=== PATIENT | male | born 1980 | race African-American/Black ===

== ENCOUNTER 2022-12-22 22:52 | Emergency (ER) | payer MEDICAID ==
[~2022-12-22] VITALS: Ht 177.8 cm; Wt 104.0 kg
[2022-12-23] MEDS ORDERED: LIDOCAINE HCL/PF 1% 10 MG/ML 5ML VIAL INFIL ONE (03:15)
[2022-12-23] MEDS ORDERED: ACETAMINOPHEN WITH CODEINE 300/30MG TABLET PO ONE (03:15)
[2022-12-23] MEDS ORDERED: BACITRACIN ZINC OINT UDPKT TOP ONE (03:15)
[2022-12-23] MEDS ORDERED: IBUPROFEN 600MG TABLET PO ONE (03:45)
[2022-12-23 04:03] VITALS: BP 131/96
[2022-12-23] MEDS ORDERED: CEPH500T MT (04:42)
[2022-12-23] MEDS ORDERED: SULF1TAB48 MT (04:42)
== END 2022-12-23 05:03 | disposition home or self-care (01) ==
LOC: ER 22:52
DX: L05.01 Pilonidal cyst with abscess (principal); J45.909 Unspecified asthma, uncomplicated
CPT/HCPCS: 10080; 99283; J3490; Z7610